=== PATIENT | male | born 1950 ===

== ENCOUNTER 2021-09-15 12:06 | Outpatient (CLI) | payer MEDICARE, OTHER | END 2021-09-15 12:07 | disposition home or self-care (01) | LOC: CSHMRI 12:06 | PROVIDERS: ATTEND Orthopaedic Surgery | DX: M25.512 Pain in left shoulder (principal); M19.012 Primary osteoarthritis, left shoulder; S43.432A Superior glenoid labrum lesion of left shoulder, initial encounter ==